=== PATIENT | male | born 1975 | race Caucasian/White ===

== ENCOUNTER 2017-04-08 08:03 | Day surgery (SDC) | payer OTHER ==
[~2017-04-08] VITALS: Ht 185.4 cm; Wt 110.7 kg
--- NOTE | ~2017-04-08 | O ---
[facility] [place] [address] OPERATIVE REPORT Name: RUFINA GREGORIO Room #: 150-16 [facility] M.R.#: [id number] Admission: 04/08/17 Attend Phys: Shun Sorenson MD Discharge: Date of : 75 Report #: [id number] THIS REPORT FOR: //name// CC: Arline Sorenson DATE OF SERVICE: 04/08/2017 PREOPERATIVE DIAGNOSIS: Left knee medial meniscus tear, chondromalacia of the patella POSTOPERATIVE DIAGNOSIS: Left knee medial meniscus tear, chondromalacia of the patella. PROCEDURE: Left knee arthroscopy, partial medial meniscectomy and chondroplasty of the patella. SURGEON: Shun Sorenson MD PRINTING SALES REPRESENTATIVE: CHRISTY Andrade INDICATIONS FOR PRINTING SALES REPRESENTATIVE: During the course of the operation, extensive manipulation, retraction and limb positioning was required, this was afforded to me by my shop assistant. ANESTHETIC: General. INDICATIONS: See hospital H and P. DESCRIPTION OF PROCEDURE: After adequate general anesthesia had been obtained, the patient's left lower extremity was prepped and draped in the usual meticulous sterile fashion. Limb was exsanguinated with gravity and tourniquet inflated to 300 torr. Superomedial portal was established by first infiltrating with 0.5% Naropin, then making a stab incision with an 11 blade. Inflow cannula was placed. Knee was insufflated with fluid. Anterolateral and anteromedial portals were established utilizing the same technique. Complete diagnostic arthroscopy was performed. Medial compartment demonstrated large flap tear of posterior horn of the meniscus. This was debrided with basket ja to a stable rim. Chondral surfaces were preserved. Cruciate ligaments were intact. Lateral compartment normal. Patellofemoral compartment demonstrated a small area of chondromalacia superior patellar pole, which was smoothed with a shaver. Otherwise, chondral surfaces were preserved. [facility] [address] [place] [address] OPERATIVE REPORT Name: RUFINA GREGORIO Room #: 150-16 [facility].#: [id number] Admission: 04/08/17 Attend Phys: Shun Sorenson MD Discharge: Date of : 75 Report #: [id number] At this time, the knee was irrigated copiously, 0.5% Naropin then infiltrated into the knee. The portals were closed with 4-0 nylon. Sterile compressive dressing applied. Tourniquet deflated. <ELECTRONICALLY SIGNED> By: Shun Sorenson MD 04/08/17 1539 [id number] Shun Sorenson MD /nt
[~2017-04-08 08:03] MED LIST: FISH OIL 1,2001 EAC4 PO; MULTIVITAMINS PO; XARELTO20 MG PO
[2017-04-08 09:20] VITALS: BP 134/76
[2017-04-08] MEDS ORDERED: XARELTO20 MG PO (11:37)
[2017-04-08 11:52] VITALS: BP 134/76
== END 2017-04-08 12:25 | disposition home or self-care (01) ==
LOC: TBA 08:03 → OR 08:03 → TBA 08:04 → OR 10:42
DX: S83.242A Other tear of medial meniscus, current injury, left knee, initial encounter (principal); M22.42 Chondromalacia patellae, left knee; Z98.890 Other specified postprocedural states; Z88.0 Allergy status to penicillin; X58.XXXA Exposure to other specified factors, initial encounter; Y93.89 Activity, other specified; Y92.89 Other specified places as the place of occurrence of the external cause; Y99.8 Other external cause status
CPT/HCPCS: 50010; 50101; 50405; 51038; 54170; 56526; 62110; 62900; 70005